=== PATIENT | female | born 1990 | race Two or more races ===

== ENCOUNTER 2018-01-31 23:12 | Emergency (ER) | payer MEDICAID ==
[~2018-01-31] VITALS: Ht 154.9 cm; Wt 56.7 kg
--- NOTE | 2018-01-31 23:50 | NUR ---
DR RUTH GALVAN MD AT BEDSIDE FOR MSE.
[2018-02-01] MEDS ORDERED: IV NORMAL SALINE 1000 ML BAG IV ONE
--- NOTE | 2018-02-01 00:09 | NUR ---
PT IN BED WATCHING TV W/ SON. DENIES CP. PALPITATIONS, OR SOB AT THIS TIME. NO DISTRESS NOTED.
[2018-02-01 00:26] LABS: CREATININE 0.8 mg/dL (0.6-1.3); POTASSIUM 3.7 mmol/L (3.5-5.1)
[2018-02-01 00:28] LABS: BASOPHILS % (AUTO) 0.3 % (0.0-2.0); EOSINOPHILS # (AUTO) 0.1 K/uL (0.0-0.7); EOSINOPHILS % (AUTO) 0.5 % (0.0-7.0); HEMATOCRIT 36.9 % (31.2-41.9); HEMOGLOBIN 12.4 g/dL (10.9-14.3); LYMPHOCYTES # (AUTO) 1.6 K/uL (20.0-40.0); LYMPHOCYTES % (AUTO) 13.1 % (20.5-51.5); MEAN CORPUSCULAR HGB CONC 34 g/dL (32.3-35.6); MEAN CORPUSCULAR VOLUME 83.6 fL (75.5-95.3); MONOCYTES # (AUTO) 0.5 K/uL (2.0-10.0); MONOCYTES % (AUTO) 4.4 % (0.0-11.0); NEUTROPHILS # (AUTO) 10.1 K/uL (1.8-8.9); NEUTROPHILS % (AUTO) 81.7 % (38.5-71.5); PLATELET COUNT (AUTO) 434 K/uL (179-408); RED BLOOD CELL COUNT(AUTO) 4.41 MIL/uL (3.63-4.92); WHITE BLOOD COUNT (AUTO) 12.3 K/uL (3.8-11.8)
[2018-02-01 00:38] LABS: BILIRUBIN,DIRECT 0.2 mg/dL (0.0-0.2); BILIRUBIN,TOTAL 0.7 mg/dL (0.2-1.0); TOTAL PROTEIN, SERUM 8.3 g/dL (6.4-8.2)
[2018-02-01] MEDS ORDERED: NEOMY/BACITRA/POLYMYXIN B OINT UD PACKET TP ONE (01:13)
--- NOTE | 2018-02-01 01:17 | NUR ---
PT RESTING IN BED W/ EYES CLOSED. NO ACUTE DISTRESS NOTED.
[2018-02-01] MEDS ORDERED: ASPIRIN 81 MG TAB.CHEW ONE (04:25)
--- NOTE | 2018-02-01 04:50 | NUR ---
Patient discharged to home in stable conditon. Written and verbal after care instructions given. Patient verbalizes understanding of instructions. IV removed w/ catheter intact. Pressure applied, no bleeding noted at site. Pt denies CP, SOB, palpitations, WAN. No distress noted. Pt took all personal belongings.
[2018-02-01 07:01] VITALS: BP 122/78
[2018-02-01] MEDS ORDERED: ASPIRIN EC 81 MG TABLET.DR PO SCH (09:00)
== END 2018-02-01 07:01 | disposition home or self-care (01) ==
LOC: ER 23:16
DX: R07.89 Other chest pain (principal); R00.2 Palpitations; Z86.79 Personal history of other diseases of the circulatory system; Z88.2 Allergy status to sulfonamides; Z88.8 Allergy status to other drugs, medicaments and biological substances
CPT/HCPCS: 36415; 71045; 80048; 80076; 83880; 84443; 84484 ×2; 84703; 85025; 85379; 85730; 93005 ×2; 99285; A4663 ×2; J7030; 70030-TC